=== PATIENT | female | born 1990 | race Caucasian/White ===

== ENCOUNTER → 2017-04-05 | Outpatient (CLI) | payer BC, MEDICAID, OTHER ==
[2015-06-16 17:05] VITALS: BMI 32.4
[~2017-04-05] MED LIST: ACET-1718 PO; ACET-1966 PO; ACET-3017 PO; CALC-521 PO; CEP500 PO; FLUO-177; HYDR-4225 PO; HYDR15CR4 TP; IBUP200C71 PO; IBUP800T37 PO; IRON15TA PO; ISOT40CA PO; MET2TH PO; MULT1TAB64 PO; NO RTN MEDS; ONDA4TAB PO; PRED50TA22 PO; SERT-184 PO; TRA50 PO
[2017-04-05 10:51] LABS: PLATELET COUNT, AUTOMATED 239 K/uL (150-450)
== END ==
LOC: LAB 10:31
PROVIDERS: ATTEND Emergency Medicine
DX: F32.9 Major depressive disorder, single episode, unspecified (principal)
CPT/HCPCS: 36415; 82310; 82374; 82435; 82565; 82947; 84132; 84295; 84443; 84520; 85025

== ENCOUNTER → 2018-03-06 | Outpatient (CLI) | payer OTHER ==
[2015-06-16 17:05] VITALS: BMI 32.4
[~2018-03-06] MED LIST changes: +IBUP-136 PO; -IBUP200C71 PO; +SERT-181 PO
--- NOTE | 2018-03-07 14:10 | RADIOLOGY IMAGING REPORT ---
FACILITY: [facility] - [place] PATIENT NAME: JAMAR DICKSON : [id number] MR: [id number] V: [id number] EXAM DATE: [id number] ORDERING PHYSICIAN: CLAUDIA COOLEY TECHNOLOGIST: Zak Thakkar RDMS, JOSE PROCEDURE:US RIGHT BREAST COMPLETE COMPARISON:None. INDICATIONS:SMALL CYST NOTED BETWEEN NIPPLE AT 6:00 ON EXAM/6 O'CLOCK POSITION RIGHT BREAST FINDINGS: There are multiple mildly prominent ducts identified in the Right retroareolar region. No internal debris or internal masses are identified within theses ducts. There is no demonstration of a cystic or solid mass in the 6 o'clock position of the Right breast, therefore clinical follow up recommended for patient's palpable findings. DIAGNOSTIC CATEGORY 2--BENIGN FINDING. RECOMMENDATIONS: CLINICAL EVALUATION. IMPRESSION: BIRADS 2: Benign finding. There are multiple mildly prominent ducts identified in the retroareolar Right breast although no cystic or solid mass identified in the 6 o'clock position of the Right breast. Therefore, clinical follow up recommended for patient's palpable findings. Dictated by: Yojana Baker M.D. on 03/06/2018 at 16:53 Transcribed by: GRETCHEN on 03/07/2018 at 13:03 Approved by: Yojana Baker M.D. on 03/07/2018 at 14:09 [facility]
== END ==
LOC: MAMO 14:44
PROVIDERS: ATTEND Nurse Practitioner Family
DX: N60.41 Mammary duct ectasia of right breast (principal)